=== PATIENT | female | born 1990 | race Caucasian/White ===

== ENCOUNTER 2016-05-08 08:57 | Outpatient (CLI) | payer BC ==
[2016-05-08 09:41] LABS: APPEARANCE,URINE CLEAR; BILIRUBIN,URINE NEGATIVE (NEGATIVE); GLUCOSE, URINE NEGATIVE (NEGATIVE); KETONES,URINE NEGATIVE (NEGATIVE); LEUKOCYTE ESTERASE,URINE NEGATIVE (NEGATIVE); NITRITE,URINE NEGATIVE (NEGATIVE); PROTEIN,URINE NEGATIVE (NEGATIVE); URINE SPECIFIC GRAVITY 1.009; UROBILINOGEN,URINE NEGATIVE mg/dL (<2.0)
[2016-05-08 10:10] LABS: URINE METHADONE SCREEN NEGATIVE; URINE OPIATES LOW NEGATIVE; URINE PHENCYCLIDINE SCREEN NEGATIVE
[2016-05-08 10:13] LABS: URINE BARBITURATES SCREEN UNCONFIRMED POSITIVE
--- NOTE | 2016-05-08 10:45 | L&D Current Admission ---
Current Admit Datetime Report Generated by CPN: 05/08/2016 10:45 ADMISSION INFORMATION Chief Complaint: Decreased Movement (05/08/2016 09:15:Joanna Somers RN)
--- NOTE | 2016-05-08 10:45 | L&D Discharge Summary ---
OB Discharge Summary Datetime Report Generated by CPN: 05/08/2016 10:45 DISCHARGE DIAGNOSIS Diagnosis/Symptoms: Decreased Movement Diagnoses/Symptoms Other: IUP at 28.3, fetus appropriate for gestational age Number of Babies in Womb: 1 Parity: 0 DIET/ACTIVITY/RESTRICTIONS Diet: Regular Activity: Normal Activity TEACHING/INSTRUCTIONS/REFERRALS Instructions Given To: patient Instructions Understood: Patient Verbalized Understanding Referrals: None Educational Materials- Other: kick counts DISCHARGE INFORMATION Discharged AMA: No Discharge Date/Time: 05/08/2016 09:47 Discharged To: Home Discharge Provider Name: Dr. Fitch Accompanied By: self Discharge Method: Ambulatory Condition: Stable FOLLOW UP INFORMATION Follow Up With: [facility] Follow Up On: As Scheduled Follow Up Phone Number: [facility] - GENERAL INSTR-CALL PROVIDER IF: Contractions: Contractions or cramps become more frequent than 8 in one hour or 4 in 20 minutes; Regular painful contractions every 5 minutes or less for one hour. Time your contractions from the beginning of one to the beginning of the next Pressure: Pressure in your vagina or lower abdomen that may feel like the baby is pushing down Period Like Cramps: Period-like cramps or low dull backache that may come and go Cramps/Diarrhea: Abdominal cramps that may be accompanied by diarrhea Gush of Fluid/Blood: Gush of fluid or blood from your vagina (it is normal to have spotting after vaginal exam or intercourse) Vaginal Discharge: Change in the type or amount of vaginal discharge Decreased Movement: Your baby is not moving as much as usual- 4 movements in 1 hour after drinking and resting on side Temperature: Temperature greater than 100.0(F) orally
--- NOTE | 2016-05-08 10:45 | L&D Admission Assessment ---
LD ADM ASMT Datetime Report Generated by CPN: 05/08/2016 10:45 PATIENT ASSESSMENT Assessment Type: Triage (05/08/2016 09:15:Joanna Yonis, RN) WEIGHT Weight (lb): 207 (05/08/2016 09:34:QS system process) Weight (kg): 94.1 (05/08/2016 09:34:QS system process) PAIN Pain Scale: 0 (05/08/2016 09:15:Joanna Somers RN) Pain Presence: None/Denies (05/08/2016 09:15:Joanna Somers, RN) Pain Type: N/A (05/08/2016 09:15:Joanna Somers, RN) Pain Goal: 1 (05/08/2016 09:15:Joanna Somers RN) CONTRACTIONS Frequency (min): none (05/08/2016 09:30:Joanna Somers, RN) Resting Tone [place]: Relaxed (05/08/2016 09:30:Joanna Somers RN) Resting Tone [place]: Relaxed (05/08/2016 09:15:Joanna Somers RN) VAGINAL EXAM Membranes Status: Intact (Annotations: intact per patient) (05/08/2016 09:15:Joanna Somers RN) NEURO Level of Consciousness: Fully Conscious (05/08/2016 09:15:Joanna Somers RN) DTR's/Clonus: DTRs 2+; No Clonus (05/08/2016 09:15:Joanna Somers RN) Headache: Denies (05/08/2016 09:15:Joanna Somers RN) Dizziness: No (05/08/2016 09:15:Joanna Somers RN) Blurred Vision: No (05/08/2016 09:15:Joanna Somers RN) Extremity Numbness/Tingling : None (05/08/2016 09:15:Joanna Somers RN) Extremity Movement: Full Range of Motion (05/08/2016 09:15:Joanna Somers RN) CARDIOVASCULAR Heart Rhythm: Regular (05/08/2016 09:15:Joanna Somers RN) Nailbeds: [place] (05/08/2016 09:15:Joanna Somers RN) Capillary Refill: Less than 3 Seconds (05/08/2016 09:15:Joanna Somers RN) Lower Extremities Edema: None (05/08/2016 09:15:Joanna Somers RN) Lower Extremities Edema Degree: None (05/08/2016 09:15:Joanna Somers RN) Upper Extremities Edema: None (05/08/2016 09:15:Joanna Somers RN) Upper Extremities Edema Degree: None (05/08/2016 09:15:Joanna Somers RN) Facial Edema: None (05/08/2016 09:15:Joanna Somers RN) Odette's Sign Left Leg: Negative (05/08/2016 09:15:Joanna Somers RN) Odette's Sign Right Leg: Negative (05/08/2016 09:15:Joanna Somers RN) DVT RISK ASSESSMENT DVT Risk Age: Age less than 41 years (05/08/2016 09:15:Joanna Somers RN) DVT Risk BMI: BMI<31 (05/08/2016 09:15:Joanna Somers RN) DVT Risk Surgery: None Applicable (05/08/2016 09:15:Joanna Somers RN) DVT Risk Other: Women Only- or (<1 month) (05/08/2016 09:15:Joanna Somers RN) DVT Risk Total: 1 (05/08/2016 09:15:QS system process) DVT Risk Text: Low Risk (<10%) No specific measures, early ambulation (05/08/2016 09:15:QS system process) RESPIRATORY Respiratory Effort: Unlabored; Regular Rhythm; Equal Expansion (05/08/2016 09:15:Joanna Somers RN) Breath Sounds, Left: Clear and Equal (05/08/2016 09:15:Joanna Somers RN) Breath Sounds, Right: Clear and Equal (05/08/2016 09:15:Joanna Somers RN) Cough Productivity: None (05/08/2016 09:15:Joanna Somers RN) GASTROINTESTINAL Nausea/Vomiting: Denies (05/08/2016 09:15:Joanna Somers RN) Bowel Sounds: Normoactive (05/08/2016 09:15:Joanna Somers RN) RUQ Epigastric Pain: Denies (05/08/2016 09:15:Joanna Somers RN) Bowel Patterns: Soft, Formed Stool (05/08/2016 09:15:Joanna Somers RN) Hemorrhoids: None (05/08/2016 09:15:Joanna Somers RN) Diet Type: Regular diet (05/08/2016 09:15:Joanna Somers RN) Last Meal: 05/08/2016 07:45 (05/08/2016 09:15:Joanna Somers RN) GENITOURINARY Bladder: Nondistended (05/08/2016 09:15:Joanna Somers RN) Frequency of Urination: No (05/08/2016 09:15:Joanna Somers RN) Urination Burning: No (05/08/2016 09:15:Joanna Somers RN) CVA Tenderness: No (05/08/2016 09:15:Joanna Somers RN) Vaginal Bleeding: None (05/08/2016 09:15:Joanna Somers RN) Vaginal Discharge Amount: None (05/08/2016 09:15:Joanna Somers RN) Vaginal Discharge Color: N/A (05/08/2016 09:15:Joanna Somers RN) Vaginal Discharge Odor: Non-Odorous (05/08/2016 09:15:Joanna Somers RN) Vaginal Discharge Character: None (05/08/2016 09:15:Joanna Somers RN) INTEGUMENTARY Skin Color: Normal for Race (05/08/2016 09:15:Joanna Somers RN) Skin Temperature: Warm (05/08/2016 09:15:Joanna Somers RN) Skin Moisture: Dry (05/08/2016 09:15:Joanna Somers RN) JOCELYN SKIN ASSESSMENT Jocelyn Scale Sensory Perception: No Impairment- Responds to verbal commands. Has no sensory deficit which would limit ability to feel or voice pain or discomfort (05/08/2016 09:15:Joanna Somers RN) Jocelyn Scale Moisture: Rarely Moist- Skin is usually dry. Linen only requires changing at routine intervals (05/08/2016 09:15:Joanna Somers RN) Jocelyn Scale Activity: Walks Frequently- Walks outside the room at least twice a day and inside room at least every 2 hours during the day. (05/08/2016 09:15:Joanna Somers RN) Jocelyn Scale Mobility: No Limitations- Makes major and frequent changes in position without assistance (05/08/2016 09:15:Joanna Somers RN) Jocelyn Scale Nutrition: Excellent- Eats most of every meal. Never refuses a meal. Usually eats a total of 4 or more servings of meat and dairy products. Occasionally eats between meals. Does not require supplementation (05/08/2016 09:15:Joanna Somers RN) Jocelyn Scale Friction and Shear: No Apparent Problem- Moves in bed and in chair independently and has sufficient muscle strength to lift up completely during move. Maintains good position in bed or chair at all times (05/08/2016 09:15:Joanna Somers RN) Jocelyn Scale Total: 23 (05/08/2016 09:15:QS system process) Jocelyn Scale Risk: No Risk of Pressure Ulcer Noted at this Time (05/08/2016 09:15:QS system process) SUPPORT Family Support: Significant Other supportive, at bedside frequently (05/08/2016 09:15:Joanna Somers RN) Emotional State: Calm/Relaxed (05/08/2016 09:15:Joanna Somers RN) SAFETY Call [place] Within Reach: Yes (05/08/2016 09:15:Joanna Somers RN) Side Rails Up: Yes (05/08/2016 09:15:Joanna Somers RN) Bed Wheels Locked: Yes (05/08/2016 09:15:Joanna Somers RN) Arm Bands Present: Yes (05/08/2016 09:15:Joanna Somers RN) Isolation: [place] (05/08/2016 09:15:Joanna Somers RN) FALL SCREEN Fall Risk History of Falling: (0) No (05/08/2016 09:15:Joanna Somers RN) Fall Risk Secondary Diagnosis: (0) No (05/08/2016 09:15:Joanna Somers RN) Fall Risk Ambulatory Aid: (0) None/Bedrest/Wheelchair/Nurse Assist (05/08/2016 09:15:Joanna Somers RN) Fall Risk IV Therapy: (0) No (05/08/2016 09:15:Joanna Somers RN) Fall Risk Gait: (0) Normal/Bedrest/Immobile (05/08/2016 09:15:Joanna Somers RN) Fall Risk Mental Status: (0) Oriented to Own Ability (05/08/2016 09:15:Joanna Somers RN) Fall Risk Score: 0 (05/08/2016 09:15:QS system process) Fall Risk Score Definition: No Risk: No action required (05/08/2016 09:15:QS system process) RECENT TRAVEL/INFECTIOUS DISEASE Recent Exp Communicable Disease: No (05/08/2016 09:15:Joanna Somers RN) Cough or Fever: No (05/08/2016 09:15:Joanna Somers RN) Foreign Travel Past 10 Days: No (05/08/2016 09:15:Joanna Somers RN) Open Wounds or Sores: No (05/08/2016 09:15:Joanna Somers RN) Prior Antibiotic Resistance Tx: No (05/08/2016 09:15:Joanna Somers RN) Cultures Obtained: Not Applicable (05/08/2016 09:15:Joanna Somers RN) Isolation Initiated: No (05/08/2016 09:15:Joanna Somers RN) Pt/Family Education: Handwashing Hygiene (05/08/2016 09:15:Joanna Somers RN) BABY A FHR Baseline Rate (bpm) Baby A: 145 (05/08/2016 09:30:Joanna Somers RN) Variability Baby A: Moderate 6-25 bpm (05/08/2016 09:30:Joanna Somers RN) Accelerations Baby A: 15X15 (05/08/2016 09:30:Joanna Somers RN) Decelerations Baby A: None (05/08/2016 09:30:Joanna Somers RN)
--- NOTE | 2016-05-08 10:45 | L&D Flow Sheet ---
LD Flowsheet Datetime Report Generated by CPN: 05/08/2016 10:45 Datetime: 05/08/2016 09:43 Communication Communication Comments: monitors removed for patient discharge (Joanna Yonis, RN) Datetime: 05/08/2016 09:30 Vital Signs NBP Sys/Phylicia/Mean (mmHg): 113 (QS system process) : 65 (QS system process) : 85 (QS system process) Pulse: 85 (QS system process) Uterine Activity Monitor Mode: External; Palpation (Joanna Somers, RN) Frequency (min): none (Joanna Yonis, RN) Resting Tone (Palpate): Relaxed (Joanna Somers, RN) Assessment A Monitor Mode: External US (Joanna Yonis, RN) Monitor Interventions for FHR: Ultrasound Adjusted (Joanna Yonis, RN) FHR Baseline Rate : 145 (Joanna Yonis, RN) FHR Baseline Changes: No Baseline Change (Joanna Yonis, RN) Variability: Moderate 6-25 bpm (Joanna Yonis, RN) Accelerations: 15X15 (Joanna Yonis, RN) Decelerations: None (Joanna Yonis, RN) Datetime: 05/08/2016 09:27 Monitor Interventions for FHR: Ultrasound Adjusted (Joanna Yonis, RN) Datetime: 05/08/2016 09:15 Vital Signs NBP Sys/Phylicia/Mean (mmHg): 123 (QS system process) : 74 (QS system process) : 91 (QS system process) Pulse: 91 (QS system process) Monitor Interventions for UA: [place] Adjusted (Joanna Somers, RN) Resting Tone (Palpate): Relaxed (Joanna Somers, RN) Assessment A Monitor Mode: External US (Joanna Somers, RN) Pain Pain Scale: 0 (Joanna Somers RN) Pain Presence: None/Denies (Joanna Somers, RN) Pain Type: N/A (Joanna Somers, RN) Pain Goal: 1 (Joanna Somers, RN) Pain Relief Measures: Comfort Measures (Joanna Somers, RN) Vaginal Exam Membrane Status: Intact (Annotations: intact per patient) (Joanna Yonis, RN) Vaginal Bleeding: None (Joanna Yonis, RN) Maternal Assessment Level of Consciousness: Fully Conscious (Joanna Yonis, RN) DTR's/Clonus: DTRs 2+; No Clonus (Joanna Yonis, RN) Headache: Denies (Joanna Yonis, RN) Breath Sounds, Left: Clear and Equal (Joanna Yonis, RN) Breath Sounds, Right: Clear and Equal (Joanna Yonis, RN) Nausea/Vomiting: Denies (Joanna Yonis, RN) RUQ Epigastric Pain: Denies (Joanna Yonis, RN) Patient Care Oxygen Method: Room Air (Joanna Somers RN) Patient Position/Activity: Left Tilt; Semi-Fowlers (Joanna Somers RN) I/O Interventions: Clear Liquids Given (Joanna Somers RN) Teaching Instructional Method: Verbal (Joanna Somers RN) Plan of Care: Plan of Care Discussed (Joanna oSmers RN) Unit Routine: [place] to Room; Call [place]; Bed; Visiting Policy (Joanna Somers RN) Related: Common Discomforts of (Joanna Somers RN)
--- NOTE | 2016-05-08 10:45 | Antepartum Discharge Summary ---
Antepartum DC Datetime Report Generated by CPN: 05/08/2016 10:45 DIET/ACTIVITY/RESTRICTIONS Diet: Regular (05/08/2016 09:25:Joanna Soemrs RN) Activity: Normal Activity (05/08/2016 09:25:Joanna Somers RN) TEACHING/INSTRUCTIONS/REFERRALS Instructions Given To: patient (05/08/2016 09:25:Joanna Somers RN) Instructions Understood: Patient Verbalized Understanding (05/08/2016 09:25:Joanna Yonis, RN) Referrals: None (05/08/2016 09:25:Joanna Somers RN) Educational Materials- Other: kick counts (05/08/2016 09:25:Joanna Somers RN) DISCHARGE INFORMATION Discharged AMA: No (05/08/2016 09:25:Joanna Somers RN) Discharge Date/Time: 05/08/2016 09:47 (05/08/2016 09:25:Joanna Somers RN) Discharged To: Home (05/08/2016 09:25:Joanna Somers RN) Discharge Provider Name: Dr. Fitch (05/08/2016 09:25:Joanna Somers RN) Accompanied By: self (05/08/2016 09:25:Joanna Somers RN) Discharge Method: Ambulatory (05/08/2016 09:25:Joanna Somers RN) Condition: Stable (05/08/2016 09:25:Joanna Somers RN) FOLLOW UP INFORMATION Follow Up With: [facility] (05/08/2016 09:25:Joanna Somers RN) Follow Up On: As Scheduled (05/08/2016 09:25:Joanna Somers RN) Follow Up Phone Number: [facility] - (05/08/2016 09:25:Joanna Somers RN) GENERAL INSTR-CALL PROVIDER IF: Contractions: Contractions or cramps become more frequent than 8 in one hour or 4 in 20 minutes; Regular painful contractions every 5 minutes or less for one hour. Time your contractions from the beginning of one to the beginning of the next (05/08/2016 09:25:Joanna Somers RN) Pressure: Pressure in your vagina or lower abdomen that may feel like the baby is pushing down (05/08/2016 09:25:Joanna Somers RN) Period Like Cramps: Period-like cramps or low dull backache that may come and go (05/08/2016 09:25:Joanna Somers RN) Cramps/Diarrhea: Abdominal cramps that may be accompanied by diarrhea (05/08/2016 09:25:Joanna Somers RN) Gush of Fluid/Blood: Gush of fluid or blood from your vagina (it is normal to have spotting after vaginal exam or intercourse) (05/08/2016 09:25:Joanna Somers RN) Vaginal Discharge: Change in the type or amount of vaginal discharge (05/08/2016 09:25:Joanna Somers RN) Decreased Movement: Your baby is not moving as much as usual- 4 movements in 1 hour after drinking and resting on side (05/08/2016 09:25:Joanna Somers RN) Temperature: Temperature greater than 100.0(F) orally (05/08/2016 09:25:Joanna Somers RN) Hypertension Signs/Symptoms: Severe headache which is not relieved 30 minutes after taking Tylenol(Acetaminophen); Blurry vision or spots before your eyes; Severe heartburn or pain on the upper right side of your abdomen that is not relieved by an antacid; Increased swelling in your face, hands or feet (05/08/2016 09:25:Joanna Somers RN) Urinary Output: Decreased urinary output or dark colored urine (05/08/2016 09:25:Joanna Somers RN)
--- NOTE | 2016-05-08 10:45 | L&D General Admission ---
General Admit Datetime Report Generated by CPN: 05/08/2016 10:45 INFORMATION Patient Age: 26 (05/08/2016 08:59:QS system process) EDC: 07/28/2016 00:00 (05/08/2016 09:09:Joanna Somers RN) : 1 (05/08/2016 09:09:Joanna Somers RN) Para: 0 (05/08/2016 09:09:Joanna Somers RN) Baby, Number in Womb: 1 (05/08/2016 09:09:Joanna Somers RN) CARE [facility] Site Safety [facility] (05/08/2016 09:09:Joanna Somers RN) Adequate Care: Yes (05/08/2016 09:09:Joanna Somers RN) Height (in): 64 (05/08/2016 09:34:QS system process) ALLERGIES Medication Allergy: Yes (05/08/2016 09:09:Joanna Somers RN) Medication Allergies: Sulfa (Sulfonamide Antibiotics) (05/08/2016); latex (05/08/2016) (05/08/2016 09:34:QS system process) Medication Allergies: Sulfa (Sulfonamide Antibiotics) (06/10/2012); latex (06/10/2012), oxycodone (05/08/2016 08:59:Joanna Somers RN) Latex Allergy: Latex Allergies (05/08/2016 09:09:Joanna Somers RN) COMMUNICATION Primary Language: Welsh (05/08/2016 09:09:Joanna Somers RN) Medical Tx Preferred Language: Welsh (05/08/2016 09:09:Joanna Somers RN) DEMOGRAPHICS Address: [address] [place] [id number] (05/08/2016 08:59:QS system process) Zipcode: [id number] (05/08/2016 08:59:QS system process) Home (05/08/2016 08:59:QS system process) SSN: [id number] (05/08/2016 08:59:QS system process) Next of Kin Name: MICHELE FINNEGAN (05/08/2016 08:59:QS system process) Next of Kin (05/08/2016 08:59:QS system process) Next of Kin Relationship: MO (05/08/2016 08:59:QS system process) Date of : 1990 (05/08/2016 08:59:QS system process) Marital Status: Single (05/08/2016 08:59:QS system process) Sex: Female (05/08/2016 08:59:QS system process) Race: (05/08/2016 08:59:QS system process) Ethnicity: Non- or (05/08/2016 08:59:QS system process) Scientology: Caodaism (05/08/2016 08:59:QS system process)
== END 2016-05-08 09:47 | disposition home or self-care (01) ==
LOC: LC 08:57
PROVIDERS: ATTEND Obstetrics & Gynecology
DX: O36.8130 Decreased fetal movements, third trimester, not applicable or unspecified (principal); Z3A.28 28 weeks gestation of pregnancy
CPT/HCPCS: 59899; 81001; 80307; 80345; G0480